=== PATIENT | female | born 1950 | race Caucasian/White ===

== ENCOUNTER → 2022-05-02 | Outpatient (CLI) | payer OTHER, SELFPAY ==
--- NOTE | 2022-05-02 | FLU_PTH ---
PATIENT: VAUGHN LOPES LOC: [facility] U#:[id number] AGE/SX: 71/F ROOM: RE05/02/[address]: Dr. Renetta Durbin MD : 1950 BED: DIS: 05/02/2022 SPEC #: [id number] RECD: 05/02/22 13:04 STATUS: OMARI SOM #: [id number] DANYELLE: 05/02/22 00:[address]: Renetta Durbin DEPT: CYTOLOGY RECD BY: Manuel Grant ENTERED: 05/02/22 13:05 SP TYPE: Fluid OTHR DR: Dr. 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 FNA right thyroid fluid, B. FNA right thyroid slides, C. FNA left thyroid fluid, D. FNA left thyroid slides DIAGNOSIS CYTOLOGY A. FNA right thyroid fluid (cytospin and cell block): A few clusters of benign follicular cells noted. B. FNA right thyroid (smears): Consistent with benign follicular/colloid nodule (Organ category II). Adequate for evaluation. See comment. C. FNA left thyroid fluid (cytospin and cell block): Rare benign follicular cells are noted. D. FNA left thyroid (smears): Rare cluster of benign follicular cells noted. See comment. /INGRID 05/03/22 COMMENT Immediate cytologic evaluation to determine adequacy is not applicable. C & D. The specimens are limited in evaluation due to lack of adequate number of follicular cells (Organ category I). Follicular cells also show drying artifacts. Correlation with clinical, radiologic findings and appropriate follow up are necessary. CYTOLOGY STUDY Slides are reviewed. CYTOLOGY GROSS A. Received is 20 ml of light brown fluid labeled with the patient's name and and designated per the requisition as FNA right thyroid. Submitted for cytology preparation including cell block. B. Received are 8 smears labeled with the patient's name and designated per the requisition as FNA right thyroid. Submitted for staining. C. Received is 20 ml of dark brow fluid labeled with the patient's name and and designated per the requisition as FNA left thyroid. Submitted for cytology preparation including cell block. D. Received are 8 smears labeled with the patient's name and designated per the requisition as FNA left thyroid. Submitted for staining /CW:kirk 05/02/2022 TC:5 CPT: 20145 x2, CPT: 66351 x4
== END | disposition home or self-care (01) ==
LOC: LABSPEC 12:17
PROVIDERS: PCP Family Medicine; Visit Provider Surgery
DX: E04.1 Nontoxic single thyroid nodule (principal)
CPT/HCPCS: 88108; 88305; 88313